=== PATIENT | male | born 1980 | race Caucasian/White ===

== ENCOUNTER 2022-09-11 21:27 | Inpatient (IN) | payer OTHER, SELFPAY ==
[2022-09-11 21:45] VITALS: BP 128/78; PULSE 93; RESP 18; TEMP 36.3; O2SAT 97
[2022-09-11 22:10] VITALS: BMI 24.0
[2022-09-11] MEDS: LORazepam 1 MG TABLET 2 MG PO (22:46)
[2022-09-11] MEDS: hydrOXYzine HCL 25 MG TABLET PO (22:48)
[2022-09-11] MEDS: Prazosin HCL 1 MG CAPSULE 4 MG PO (23:16)
[2022-09-11] MEDS: Gabapentin 400 MG CAPSULE 800 MG PO (23:16)
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
[2022-09-12] MEDS: LORazepam 1 MG TABLET PO ×7 (03:16→23:48)
[2022-09-12] MEDS: Magnesium Hydrox/Alum Hydrox 30 ML ORAL.SUSP PO (03:19)
[2022-09-12 03:22] VITALS: BP 110/72; PULSE 95
[2022-09-12] MEDS: Omeprazole 20 MG CAPSULE.DR PO ×2 (05:55→15:55)
[2022-09-12 06:00] VITALS: BP 128/73; PULSE 109; RESP 18; TEMP 36.7; O2SAT 98
[2022-09-12] MEDS: Gabapentin 400 MG CAPSULE 800 MG PO ×4 (09:19→23:48)
[2022-09-12] MEDS: Topiramate 100 MG TABLET PO (09:20)
[2022-09-12] MEDS: hydrOXYzine HCL 50 MG TABLET PO ×3 (09:39→23:48)
[2022-09-12] MEDS: LORazepam 1 MG TABLET 2 MG PO (11:07)
--- NOTE | 2022-09-12 11:44 | PC.NURSE ---
Pt in tracy after speaking with , when i don't get the medications, I want to choke people, out Pt was told by program writer, im here to help you. Well it doesn't matter i need my meds.
[2022-09-12] MEDS: Topiramate 25 MG TABLET PO (11:59)
[2022-09-12] MEDS: diazePAM 5 MG TABLET 20 MG PO (11:59)
[2022-09-12] MEDS: buPROPion HCL 100 MG TABLET 200 MG PO (12:08)
[2022-09-12] MEDS: Simethicone 80 MG TAB.CHEW PO (12:10)
--- NOTE | 2022-09-12 13:14 | P.CONHOSP_ITS ---
History of Present Illness Data of Consult Service Date: 09/12/22 Primary Care Provider: Unknown Physician HPI Reason for consult: Admission H&P Pt is a 42-year-old male with a PMH significant for?alcohol use disorder since age 11, hx of alcohol withdrawal, depression, and anxiety who is admitted to the psychiatry unit for worsening depression/anxiety and SI. Medical consult for admission H&P. Patient states days ago he experienced a centrally located chest pressure approximately 2 inches in circumference. Thought he was having a heart attack and went to [facility] in [place]. Workup there was a pparently negative. Pt had a recurrence of symptoms the next day and went to [facility] in [place]. Bloodwork there was largely unremarkable, troponins negative. EKG with non-specific ST changes. Seen by cardiology there and medically cleared for transfer d/t repeated SI. Currently pt has not acute medical complaints. No current chest pain/pressure, palpitations. No SOB. Denies fever, chills, N/V, diarrhea, abdominal pain. Of note, pt states he has been drinking 2-3 pints daily with additional 40s of Natural Ice. Last drink 3 days ago. Ethyl alcohol level 202 on 08/10/2022 at [facility]. Review of Systems Review of Systems: Central, nonradiating chest pressure on and off on 09/09 and 09/10 Currently no chest pain/pressure, palpitations Pt has no acute medical complaints Yes all other systems are reviewed and are negative PMFSH Social History Household Members: None Housing: Homeless Do you presently have visiting nurse or other home services: No Patient Tobacco Use Status: Current everyday Tobacco user Tobacco use type: Cigarette Cigarette Packs Per Day: 1 Cigarettes Per Day: 20.0 Smoked in Last 30 Days: Yes e-Cigarette/Vaping Use: Never Used Patient Interested in Nicotine Replacement: Yes Patient Given Instructions on How to Stop Smoking: Yes Date Education Initiated: 09/11/22 Second Hand Smoke Exposure: Yes Use of substances other than those prescribed or required for medical reasons: Yes Substance Use Type: Crack/Cocaine Substance Use Frequency: Recent Binge Last Used Substance: Just Prior to Admission Last Used Substance Other:: 2 days ago Currently Displaying Signs/Symptoms of Drug Intoxication Withdrawal: No Any prior treatment program specific to substance use: Yes Have you been hit, kicked, punched, or otherwise hurt by someone within the past year? If so, by whom?: No Do you feel safe in your current relationship?: Yes Is there a partner from a previous relationship who is making you feel unsafe now?: No Are you made to feel afraid or neglected: No Advance Directives: No Advance Directives Information Provided: Yes Do you have thoughts of harming others: Frequent Do you have a plan to hurt others: No Plan Recently lost weight without trying: Yes How much weight loss: 2-13 pounds Eating poorly because of decreased appetite: Yes Nutrition screen score: 4 Nutrition Risks: No Nutritional Risk Poor oral hygiene: Yes service: No Sexual orientation: Straight/Heterosexual Meds Allergies Allergy/AdvReac Type Severity Reaction Status Date / Time No Known Allergies Allergy Verified 09/11/22 22:01 Active Medications: Current Medications Acetaminophen (Acetaminophen 325 Mg Tablet) 650 mg PO Q6H PRN PRN Reason: Headache/Pain Mild Scale (1-3) Al Hydroxide/Mg Hydroxide (Magnesium Hydrox/Alum Hydrox 30 Ml Oral.Susp) 30 ml PO Q6H PRN PRN Reason: Heartburn/Nausea Last Admin: 09/12/22 03:19 Dose: 30 ml Gabapentin (Gabapentin 400 Mg Capsule) 800 mg PO TID KARLOS Last Admin: 09/12/22 09:19 Dose: 800 mg Hydroxyzine HCl (Hydroxyzine Hcl 25 Mg Tablet) 25 mg PO Q6H PRN PRN Reason: Anxiety Last Admin: 09/11/22 22:48 Dose: 25 mg Hydroxyzine HCl (Hydroxyzine Hcl 50 Mg Tablet) 50 mg PO Q6H PRN PRN Reason: anxiety Last Admin: 09/12/22 09:39 Dose: 50 mg Lorazepam (Lorazepam 1 Mg Tablet) 2 mg PO Q2H PRN PRN Reason: CIWA 11 and above Last Admin: 09/12/22 11:07 Dose: 2 mg Lorazepam (Lorazepam 1 Mg Tablet) 1 mg PO Q2H PRN PRN Reason: CIWA 6-10 Last Admin: 09/12/22 09:19 Dose: 1 mg Magnesium Hydroxide (Milk Of Magnesia 30 Ml Oral.Susp) 30 ml PO DAILY PRN PRN Reason: Constipation Nicotine Polacrilex (Nicotine Polacrilex 2 Mg Gum) 4 mg BUCCAL Q2H PRN PRN Reason: Nicotine Cravings Omeprazole (Omeprazole 20 Mg Capsule.Dr) 20 mg PO BID@0630,1630 [facility] Last Admin: 09/12/22 05:55 Dose: 20 mg Prazosin HCl (Prazosin Hcl 1 Mg Capsule) 4 mg PO BEDTIME [facility]; Protocol Last Admin: 09/11/22 23:16 Dose: 4 mg Simethicone (Simethicone 80 Mg Tab.Chew) 80 mg PO QIDWMHS PRN PRN Reason: Gas Last Admin: 09/12/22 12:10 Dose: 80 mg Sumatriptan Succinate (Sumatriptan Succinate 50 Mg Tablet) 50 mg PO BID PRN PRN Reason: migraine Topiramate (Topiramate 100 Mg Tablet) 100 mg PO BID [facility] Last Admin: 09/12/22 09:20 Dose: 100 mg Trazodone HCl (Trazodone Hcl 50 Mg Tablet) 50 mg PO BEDTIME MRX1 PRN PRN Reason: Insomnia Home Medications Medication Instructions Recorded Confirmed Last Taken Type buprenorphine 8 mg-naloxone 2 mg 10 mg sublingual BID 09/11/22 09/11/22 Unknown History sublingual film (Suboxone) bupropion HCl 200 mg tablet,12 hr 200 mg PO BID 09/11/22 09/11/22 09/11/22 14:30 History sustained-release clonazepam 1 mg tablet 1 mg PO TID anxiety 09/11/22 09/11/22 Unknown History dextroamphetamine-amphetamine 30 1 tab PO TID 09/11/22 09/11/22 09/11/22 10:15 History mg tablet gabapentin 800 mg tablet 800 mg PO QID 09/11/22 09/11/22 09/11/22 19:00 History hydroxyzine pamoate 50 mg capsule 50 mg PO Q6H PRN anxiety 09/11/22 09/11/22 Unknown History ibuprofen 800 mg tablet 800 mg PO TID PRN pain 09/11/22 09/11/22 09/10/22 19:00 History ipratropium 0.5 mg-albuterol 3 mg 1 inhalation QID 09/11/22 Unknown History (2.5 mg base)/3 mL nebulization soln omeprazole 20 mg capsule,delayed 20 mg PO BID 09/11/22 09/11/22 Unknown History release prazosin 2 mg capsule 4 mg PO BEDTIME 09/11/22 09/11/22 Unknown History sumatriptan succinate 50 mg tablet 50 mg PO BID 09/11/22 09/11/22 Unknown History topiramate 100 mg tablet 100 mg PO BID 09/11/22 09/11/22 Unknown History Physical Exam Vital Signs and Narrative: Vital Signs: Last Vital Signs Temp 98.1 F 09/12/22 06:00 Pulse 109 H 09/12/22 06:00 Resp 18 09/12/22 06:00 BP 128/73 09/12/22 06:00 Pulse Ox 98 09/12/22 06:00 O2 Del Method Room Air 09/12/22 06:00 BMI result Body Mass Index 24.0 General: AOx3, no acute distress Resp: CTA bilaterally CVS: S1, S2, RRR GI: +BS, NT, no distention Skin: No rash Neuro: Cranial nerves II-XII grossly intact bilaterally. Motor grossly intact bilaterally Extremities: No edema Psych: Agitated at times Assessment and Plan (1) Routine history and physical examination of adult: Status: Acute Plan Pt is a 42-year-old male with a PMH significant for?alcohol use disorder since age 11, hx of alcohol withdrawal, depression, and anxiety who is admitted to the psychiatry unit for worsening depression/anxiety and SI. Medical consult for admission H&P. Mood disorder Plan as per Psychiatry Chest pain/pressure Pt complains of experiencing intermittent chest pain/pressure on 09/09 and 09/10 Cardiac workup at [facility] and [facility] negative for acute ischemia/ACS Most likely anxiety-induced Given extensive cardiac workup at two other hospitals, no further workup indicated at this time Alcohol use disorder Pt with a hx of alcohol withdrawal, last drink 3 days ago Currently no tremors, being treated with Ativan Continue treatment for alcohol withdrawal CIWA scale Daily multivitamin, folic acid, thiamine GREGOR Pt states he was diagnosed with severe sleep apnea years ago, but does not have a CPAP yet Follow-up outpatient with PCP to set up sleep study Thank you for allowing us to participate in the care of this patient. Signing off at this time. Please let us know if there are any acute complaints or questions. Time Spent With Patient Time: Total time managing care of this patient today ____ minutes.
--- NOTE | 2022-09-12 15:08 | PC.NURSE ---
1420 observed Pt sleeping in his bed.
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
[2022-09-12 15:43] VITALS: BP 116/77; PULSE 97; RESP 18; TEMP 36.8; O2SAT 99
[2022-09-12] MEDS: Ibuprofen 800 MG TABLET PO ×2 (15:54→23:48)
[2022-09-12] MEDS: Topiramate 25 MG TABLET 125 MG PO (23:48)
[2022-09-12] MEDS: Prazosin HCL 1 MG CAPSULE 4 MG PO (23:48)
[2022-09-12 23:50] VITALS: BP 115/82; PULSE 94; RESP 16; O2SAT 98
[2022-09-13 06:00] VITALS: BP 112/66; PULSE 107; RESP 18; O2SAT 98
[2022-09-13] MEDS: buPROPion HCL 100 MG TABLET 200 MG PO (06:07)
[2022-09-13] MEDS: Omeprazole 20 MG CAPSULE.DR PO (06:07)
[2022-09-13] MEDS: LORazepam 1 MG TABLET PO (06:12)
[2022-09-13] MEDS: hydrOXYzine HCL 50 MG TABLET PO (06:12)
[2022-09-13] MEDS: Ibuprofen 800 MG TABLET PO (06:59)
[2022-09-13] MEDS: SUMAtriptan succinate 50 MG TABLET PO (06:59)
[2022-09-13 08:04] VITALS: BP 129/80; PULSE 82; RESP 16; TEMP 36.3; O2SAT 100
[2022-09-13] MEDS: Gabapentin 400 MG CAPSULE 800 MG PO (08:18)
[2022-09-13] MEDS: Topiramate 25 MG TABLET 125 MG PO (08:19)
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
--- NOTE | 2022-09-13 10:27 | PC.NURSE ---
Pt ready and aware of discharge refused to go over instructions.Denies SI/HI/AH/VH belongings returned to pt to include medications. Pt reports he will initially go to prison then will seek treatment facility.
== END 2022-09-13 10:23 | disposition home or self-care (01) | DRG 754 ==
PROVIDERS: Admitting Provider Psychiatry & Neurology Psychiatry; Visit Provider Psychiatry & Neurology Psychiatry
DX: F32.A Depression, unspecified (principal); R45.851 Suicidal ideations; F14.10 Cocaine abuse, uncomplicated; F39 Unspecified mood [affective] disorder; F17.210 Nicotine dependence, cigarettes, uncomplicated; Z71.6 Tobacco abuse counseling; Z79.899 Other long term (current) drug therapy